=== PATIENT | male | born 1940 | race Hispanic/Latino ===

== ENCOUNTER 2022-01-07 06:19 | Emergency (ER) | payer MEDICARE, OTHER ==
[2022-01-07] MEDS ORDERED: Proparacaine 0.5% Opth 15 ML BOT ONE (07:05)
[2022-01-07] MEDS ORDERED: Fluorescein Opthalmic Strip ONE (07:05)
== END 2022-01-07 08:15 | disposition home or self-care (01) ==
LOC: ERS 06:19
DX: T15.02XA Foreign body in cornea, left eye, initial encounter (principal); E11.9 Type 2 diabetes mellitus without complications; I10 Essential (primary) hypertension; E78.5 Hyperlipidemia, unspecified
CPT/HCPCS: 65220